=== PATIENT | male | born 1940 | race Caucasian/White ===

== ENCOUNTER 2018-06-07 17:28 | Inpatient (IN) ==
[2018-06-07] MEDS ORDERED: 0.9 % Sodium Chloride 1,000 ML IVC ONE ×3 (18:12→19:16)
[2018-06-07] MEDS ORDERED: predniSONE 20 MG TABLET PO ONE (18:12)
--- NOTE | 2018-06-07 18:16 | Emergency Department Note ---
Disposition Clinical Impression: Lumbar back pain, Acute renal failure, Sciatica Disposition: Still a Patient Condition: Good Referrals: Oswald Gonzales DO [Primary Care Provider] - Forms: ED Satisfaction Letter General Adult HPI - General Chief complaint: ED Back Pain/Injury Stated complaint: back pain/bilat lower extremity edema Time Seen by Provider: 06/07/18 17:46 Source: patient Mode of arrival: private vehicle Limitations: no limitations Nursing Notes Reviewed: Yes Vital Signs Reviewed: Yes - History of Present Illness HPI Narrative: Patient is a 78-year-old male with a past medical history of chronic back pain for which she sees Dr. Sosa. Patient states he is currently scheduled to have an ablation of a nerve in his back this coming Friday. 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 When he woke up on Friday he reported back pain on the left side with radiation down his left leg. Today he reports difficulty walking due to pain. He has tried a number of percocet which he thinks were "325" Q6 hours today without significant relief. He reports a hx of HTN, but triage vitals included hypotension. Pt reports his pain as sharp in nature, with radiation down his left, made worse with certain movements, and made better by other motions. Pain Scale: 7 - Related Data Allergies Allergy/AdvReac Type Severity Reaction Status Date / Time Penicillins [PCN] Allergy Hives Verified 09/14/15 12:32 Review of Systems: All systems ED: reviewed and negative except as stated. Constitutional: Denies: fever, chills ENT ED: Denies: ear pain, throat pain Cardiovascular: Denies: chest pain, palpitations Respiratory: Denies: cough, dyspnea Gastrointestinal: Denies: abdominal pain, vomiting, diarrhea, constipation Reports: nausea, intermittently, from pain Genitourinary: Denies: urgency, dysuria, frequency Musculoskeletal: Denies: neck pain Reports: back pain, chronic in nature with acute component for the last two days Integumentary: Denies: rash, abrasion Neurological: Denies: headache, weakness, Reports: numbness, paresthesias in [place] Psychiatric: Denies: anxiety, depression Endocrine: Denies: fatigue, heat or cold intolerance Hematological/Lymphatic: Denies: easy bleeding, easy bruising Allergic/Immunologic: Denies: facial swelling, urticaria Past Medical History - Past Medical History Medical history: Reports: GERD, hypertension Psychiatric history: Reports: no psych history - Social History Smoking Status: Never smoker Smokeless Tobacco Status: No Alcohol use: Reports: occasionally Drug use: Reports: none Physical Exam General: A&O x 3. No acute distress. Well developed, well nourished. Head: atraumatic, normocephalic. ENT: No conjunctival injection, no scleral icterus. PERRLA. EOMI. Oropharynx non- erythematous. mucous membranes tacky. Neuro: No focal deficits, no speech deficit, no facial droop, mentating well. BUE str 5/5, RLE Str 5/5, LLE Str 4/5. Pulm: Lungs CTAB A/P. No wheezes, rales, ronchi. Cardio: RRR no m/r/g. Chest not tender to palpation. Abd: Soft, non-distended. Normoactive bowel sounds. Non-tender to palpation. No guarding. Non rigid. Extremities: Radial pulses 2+ [place], dorsalis pedis/posterior tibialis 2+ right, 1+ left. [place] LE edema 2+, with cold feet and cap refill of ~7s, which pt reports as "better than normal" and chronic in nature. Skin: warm, dry, intact. No rashes. Psych: Appropriate mood and affect. Answers questions appropriately. Cooperative with exam. - General Limitations: no limitations General appearance: alert Course Course Narrative: Pt reports for inability to control pain at home, but was found to be tachycardic with automatic and manual auscultation of both upper extremities. Will obtain CBC, BMP, troponin, lactic acid, EKG. Will administer 40mg prednisone and apply lidoderm patch. Disposition pending workup. - Reevaluation(s) Reevaluation #1: Pt had lactic 3.1 with WBC >17. On re-examination, he does not have any abdominal tenderness. He does report a headache and some issues with urge incontinence, but does not report any dysuria and there was no CVA tenderness. He also reports a hx of cystitis in march of this year, but it was successfully treated with oral antibiotics. Time: 18:58 Reevaluation #2: Pts BP improved to 90/60 with 1L NaCl, but Cr came back 4.44. A second liter was ordered. Time: 19:07 Vital Signs Temperature 97.7 F 06/07/18 17:31 Pulse Rate 104 06/07/18 17:31 Respiratory Rate 16 06/07/18 17:31 Blood Pressure 77/59 06/07/18 17:31 O2 Sat by Pulse Oximetry 94 06/07/18 17:31 Temperature 97.7 F 06/07/18 17:31 Pulse Rate 90 06/07/18 18:50 Respiratory Rate 16 06/07/18 18:50 Blood Pressure 93/62 06/07/18 18:50 O2 Sat by Pulse Oximetry 100 06/07/18 18:50 Oxygen Delivery Oxygen Delivery Room Air Medical Decision Making - MDM Narrative Medical decision making narrative: Pt will be signed out to night team - Dr. Erickson. Please see his note for full disposition and results of the workup. At time of sign-out, UA and CXR were pending. - Lab Data Result diagrams: 06/07/18 18:20 06/07/18 18:20 Lab Results 06/07/18 06/07/18 06/07/18 Range/Units 18:20 18:20 18:20 WBC 17.4 H (4.3-11.1) K/mcL RBC 4.69 (4.19-5.50) M/mcL Hgb 14.7 (12.9-16.9) g/dL Hct 43.7 (37.5-50.1) % MCV 93.2 (83.0-100.0) fL MCH 31.3 (28.0-33.3) pg MCHC 33.6 (31.6-35.5) g/dL RDW 13.9 (11.5-14.5) % Plt Count 158 (140-400) K/mcL MPV 10.0 (9.4-12.4) fL Immature Gran % 1.1 (0-4) % Seg Neutrophils % 84.4 % Lymphocytes % 9.5 % Monocytes % 4.0 % Eosinophils % 0.7 % Basophils % 0.3 % Neutrophils # 14.7 H (1.6-8.9) K/mcL Lymphocytes # 1.7 (0.6-4.6) K/mcL Monocytes # 0.7 (0.0-1.3) K/mcL Eosinophils # 0.1 (0.0-0.6) K/mcL Basophils # 0.1 (0.0-0.2) K/mcL Sodium 137 (136-145) mEq/L Potassium 3.9 (3.5-5.1) mEq/L Chloride 99 (98-107) mEq/L Carbon Dioxide 20 L (23-29) mEq/L BUN 42 H (8-23) mg/dL Creatinine 4.44 H (0.70-1.30) mg/dL Est GFR ( Amer) 16 L (> 60) Est GFR (Non-Af Amer) 13 L (> 60) BUN/Creatinine Ratio 9 (6-26) Glucose 173 H (70-105) mg/dL Calculated Osmolality 299 (280-300) Lactic Acid 3.1 H (0.5-2.2) mmol/L Calcium 9.0 (8.6-10.3) mg/dL Troponin I < 0.03 (< 0.04) ng/mL - EKG Data EKG #1 EKG attestation: Yes I reviewed and interpreted this EKG. EKG results narrative: HR 98, rhythm sinus, axis borderline right at 85. ID 154, QRS 158 and prolonged, QTc 509 and prolonged. RBBB. EKG is different from comparison study from 01/31/10. Attestation Statement - Attestation Attestation: I, Chong Calvert, examined this patient and my medical decision-making was reviewed with the [employer]/PA/Advanced Practice Nurse/Resident Physician. I agree with the documented findings, disposition and treatment plan as described except to the extent set forth below. 78-year-old male presents emergency Department with concerns of back pain. Patient states he was sitting in a coronal day with 2 days ago and has had significant pain since that time. Patient states the pain is in his left low back and radiates down his left lower extremity. No trauma or cumulative trauma, no recent unexplained weight loss, immunosuppression, unexplained fever, IVDU, prolonged steroids, focal neurologic deficits with progress for disabling symptoms or perineal paresthesias or incontinence, not present more than 6 weeks, and no history of AAA. He does have a history of similar symptoms in the past secondary to sciatica. He received steroid injections at that time which improved his symptoms. On evaluation the patient was hypotensive, he was then also mildly tachycardic. Patient had acute renal failure on laboratory evaluation. Patient care signed out to Dr. Erickson pending CT exam of the abdomen and likely admission to the hospital.
[2018-06-07 18:29] LABS: Basophils # 0.1 K/mcL (0.0-0.2); Basophils % 0.3 %; Eosinophils # 0.1 K/mcL (0.0-0.6); Eosinophils % 0.7 %; Hematocrit 43.7 % (37.5-50.1); Hemoglobin 14.7 g/dL (12.9-16.9); Immature Granulocytes % 1.1 % (0-4); Lymphocytes # 1.7 K/mcL (0.6-4.6); Lymphocytes % 9.5 %; Mean Corpuscular HGB Conc 33.6 g/dL (31.6-35.5); Mean Corpuscular Hemoglobin 31.3 pg (28.0-33.3); Mean Corpuscular Volume 93.2 fL (83.0-100.0); Monocytes # 0.7 K/mcL (0.0-1.3); Neutrophils # 14.7 K/mcL (1.6-8.9); Platelet Count 158 K/mcL (140-400); Red Blood Count 4.69 M/mcL (4.19-5.50); Red Cell Distribution Width 13.9 % (11.5-14.5); Segmented Neutrophils % 84.4 %
[2018-06-07 18:53] LABS: BUN/Creatinine Ratio 9 (6-26); Blood Urea Nitrogen 42 mg/dL (8-23); Carbon Dioxide 20 mEq/L (23-29); Chloride 99 mEq/L (98-107); Glucose 173 mg/dL (70-105); Osmolality,Calculated 299 (280-300); Potassium 3.9 mEq/L (3.5-5.1); Sodium 137 mEq/L (136-145); eGFR For Non-African Americans 13 (> 60)
[2018-06-07 18:54] LABS: Troponin I < 0.03 ng/mL (< 0.04)
--- NOTE | 2018-06-07 19:16 | Emergency Department Note ---
Disposition Clinical Impression: Lumbar back pain, Acute urinary retention Acute renal failure Qualifiers: Acute renal failure type: unspecified Qualified Code(s): N17.9 - Acute kidney failure, unspecified Sciatica Qualifiers: Laterality: unspecified laterality Qualified Code(s): M54.30 - Sciatica, unspecified side Disposition: Still a Patient Condition: Good Referrals: Oswald Gonzales DO [Primary Care Provider] - Forms: ED Satisfaction Letter Time of Disposition: 21:06 General Adult HPI - General Chief complaint: ED Back Pain/Injury Stated complaint: back pain Time Seen by Provider: 06/07/18 17:46 Source: patient Mode of arrival: private vehicle Limitations: no limitations - History of Present Illness Pain Scale: 7 - Related Data Home Medications Medication Instructions Recorded Confirmed Acetaminophen [Tylenol] 500 mg PO DAILY PRN 06/07/18 06/07/18 Aspirin [Ecotrin] 325 mg PO DAILY 06/07/18 06/07/18 Gabapentin [Neurontin] 600 mg PO BID 06/07/18 06/07/18 Latanoprost [Xalatan] 1 drop OP HS 06/07/18 06/07/18 Lisinopril/Hydrochlorothiazide 2 each PO DAILY 06/07/18 06/07/18 [Zestoretic 10-12.5 mg Tablet] Naproxen [Naprosyn] 500 mg PO DAILY PRN 06/07/18 06/07/18 Omeprazole [PriLOSEC] 20 mg PO BID 06/07/18 06/07/18 Allergies Allergy/AdvReac Type Severity Reaction Status Date / Time Penicillins [PCN] Allergy Hives Verified 09/14/15 12:32 Past Medical History - Past Medical History Medical history: Reports: GERD, hypertension Psychiatric history: Reports: no psych history - Social History Smoking Status: Never smoker Smokeless Tobacco Status: No Alcohol use: Reports: occasionally Drug use: Reports: none Physical Exam - General Limitations: no limitations General appearance: alert Course Vital Signs Temperature 97.7 F 06/07/18 17:31 Pulse Rate 104 06/07/18 17:31 Respiratory Rate 16 06/07/18 17:31 Blood Pressure 77/59 06/07/18 17:31 O2 Sat by Pulse Oximetry 94 06/07/18 17:31 Temperature 97.7 F 06/07/18 17:31 Pulse Rate 93 06/07/18 19:25 Respiratory Rate 18 06/07/18 19:25 Blood Pressure 105/75 06/07/18 19:25 O2 Sat by Pulse Oximetry 100 06/07/18 19:25 Oxygen Delivery Oxygen Delivery Room Air Medical Decision Making - Lab Data Result diagrams: 06/07/18 18:20 06/07/18 18:20 Lab Results 06/07/18 06/07/18 06/07/18 Range/Units 18:20 18:20 18:20 WBC 17.4 H (4.3-11.1) K/mcL RBC 4.69 (4.19-5.50) M/mcL Hgb 14.7 (12.9-16.9) g/dL Hct 43.7 (37.5-50.1) % MCV 93.2 (83.0-100.0) fL MCH 31.3 (28.0-33.3) pg MCHC 33.6 (31.6-35.5) g/dL RDW 13.9 (11.5-14.5) % Plt Count 158 (140-400) K/mcL MPV 10.0 (9.4-12.4) fL Immature Gran % 1.1 (0-4) % Seg Neutrophils % 84.4 % Lymphocytes % 9.5 % Monocytes % 4.0 % Eosinophils % 0.7 % Basophils % 0.3 % Neutrophils # 14.7 H (1.6-8.9) K/mcL Lymphocytes # 1.7 (0.6-4.6) K/mcL Monocytes # 0.7 (0.0-1.3) K/mcL Eosinophils # 0.1 (0.0-0.6) K/mcL Basophils # 0.1 (0.0-0.2) K/mcL Sodium 137 (136-145) mEq/L Potassium 3.9 (3.5-5.1) mEq/L Chloride 99 (98-107) mEq/L Carbon Dioxide 20 L (23-29) mEq/L BUN 42 H (8-23) mg/dL Creatinine 4.44 H (0.70-1.30) mg/dL Est GFR ( Amer) 16 L (> 60) Est GFR (Non-Af Amer) 13 L (> 60) BUN/Creatinine Ratio 9 (6-26) Glucose 173 H (70-105) mg/dL Calculated Osmolality 299 (280-300) Lactic Acid 3.1 H (0.5-2.2) mmol/L Calcium 9.0 (8.6-10.3) mg/dL Troponin I < 0.03 (< 0.04) ng/mL Urine Color (Yellow) Urine Clarity (Clear) Urine pH (5.0-8.0) pH Units Ur Specific [place] (1.010-1.025) Urine Protein (Neg-Trace) mg/dL Urine Glucose (UA) (Normal) mg/dL Urine Ketones (Negative) mg/dL Urine Blood (Negative) Urine Nitrite (Negative) Urine Bilirubin (Negative) Urine Urobilinogen (Normal) mg/dL Ur Leukocyte Esterase (Negative) Urine Microscopic RBC (0-3) per hpf Urine Microscopic WBC (0-3) per hpf Ur Squamous Epith Cells (None-Few) per lpf Urine Bacteria (None-Few) per hpf Hyaline Casts (None-Few) per lpf Ur Culture Indicated? (NO) 06/07/18 Range/Units 20:08 WBC (4.3-11.1) K/mcL RBC (4.19-5.50) M/mcL Hgb (12.9-16.9) g/dL Hct (37.5-50.1) % MCV (83.0-100.0) fL MCH (28.0-33.3) pg MCHC (31.6-35.5) g/dL RDW (11.5-14.5) % Plt Count (140-400) K/mcL MPV (9.4-12.4) fL Immature Gran % (0-4) % Seg Neutrophils % % Lymphocytes % % Monocytes % % Eosinophils % % Basophils % % Neutrophils # (1.6-8.9) K/mcL Lymphocytes # (0.6-4.6) K/mcL Monocytes # (0.0-1.3) K/mcL Eosinophils # (0.0-0.6) K/mcL Basophils # (0.0-0.2) K/mcL Sodium (136-145) mEq/L Potassium (3.5-5.1) mEq/L Chloride (98-107) mEq/L Carbon Dioxide (23-29) mEq/L BUN (8-23) mg/dL Creatinine (0.70-1.30) mg/dL Est GFR ( Amer) (> 60) Est GFR (Non-Af Amer) (> 60) BUN/Creatinine Ratio (6-26) Glucose (70-105) mg/dL Calculated Osmolality (280-300) Lactic Acid (0.5-2.2) mmol/L Calcium (8.6-10.3) mg/dL Troponin I (< 0.04) ng/mL Urine Color Dark Yellow (Yellow) Urine Clarity Cloudy A (Clear) Urine pH 5.0 (5.0-8.0) pH Units Ur Specific [place] 1.026 H (1.010-1.025) Urine Protein 30 H (Neg-Trace) mg/dL Urine Glucose (UA) Normal (Normal) mg/dL Urine Ketones Trace H (Negative) mg/dL Urine Blood Negative (Negative) Urine Nitrite Negative (Negative) Urine Bilirubin Small H (Negative) Urine Urobilinogen Normal (Normal) mg/dL Ur Leukocyte Esterase Small H (Negative) Urine Microscopic RBC 15-30 H (0-3) per hpf Urine Microscopic WBC 15-30 H (0-3) per hpf Ur Squamous Epith Cells Many H (None-Few) per lpf Urine Bacteria None Seen (None-Few) per hpf Hyaline Casts Many H (None-Few) per lpf Ur Culture Indicated? NO. A (NO) Attestation Statement - Attestation Attestation: Care of patient assumed from at 19:[address] abdomen and pelvis. The patient presented with atraumatic low back pain. He was hypotensive upon arrival. Labs indicate an acute kidney injury. Urinalysis and CT pending. Patient appears in no acute distress on exam 19:56: Unable to void spontaneously. He states he last urinated earlier this morning. I did perform a limited suprapubic transabdominal ultrasound which shows acutely retained urine. Gutierres catheter to be placed. 20:06: The patient states his legs feel weak. He has some numbness to his bilateral legs. Given his acute urinary retention I am ordering an MRI of his lumbar spine 21:06: Care to be endorsed to Dr. Mac at 10 PM pending MRI L-spine
[2018-06-07 20:22] LABS: Bilirubin,Urine Small (Negative); Blood,Urine Negative (Negative); Clarity,Urine Cloudy (Clear); Color,Urine Dark Yellow (Yellow); Glucose,Urine (UA) Normal (Normal); Ketones,Urine Trace mg/dL (Negative); Leukocyte Esterase,Urine Small (Negative); Nitrite,Urine Negative (Negative); Protein,Urine 30 mg/dL (Neg-Trace); Specific Gravity,Urine 1.026 (1.010-1.025); Urobilinogen,Urine Normal (Normal)
[2018-06-07 20:25] LABS: Bacteria,Urine None Seen per hpf (None-Few); RBC,Urine 15-30 per hpf (0-3); Squamous Epithelial Cell,Urine Many per lpf (None-Few); WBC,Urine 15-30 per hpf (0-3)
[2018-06-07 20:40] LABS: Hyaline Casts,Urine Many per lpf (None-Few)
--- NOTE | 2018-06-07 21:58 | Emergency Department Note ---
Disposition Clinical Impression: Lumbar back pain, Acute urinary retention, Superficial thrombophlebitis of left leg Acute renal failure Qualifiers: Acute renal failure type: unspecified Qualified Code(s): N17.9 - Acute kidney failure, unspecified Sciatica Qualifiers: Laterality: unspecified laterality Qualified Code(s): M54.30 - Sciatica, unspecified side Left leg DVT Qualifiers: Affected thrombotic vein of extremity: unspecified vein of extremity Chronicity: acute Qualified Code(s): I82.402 - Acute embolism and thrombosis of unspecified deep veins of left lower extremity Disposition: Admitted As Inpatient Condition: Good Referrals: Oswald Gonzales DO [Primary Care Provider] - Forms: ED Satisfaction Letter General Adult HPI - General Chief complaint: ED Back Pain/Injury Stated complaint: back pain Time Seen by Provider: 06/07/18 17:46 Source: patient Mode of arrival: private vehicle Limitations: no limitations - History of Present Illness Pain Scale: 7 - Related Data Home Medications Medication Instructions Recorded Confirmed Acetaminophen [Tylenol] 500 mg PO DAILY PRN 06/07/18 06/07/18 Aspirin [Ecotrin] 325 mg PO DAILY 06/07/18 06/07/18 Gabapentin [Neurontin] 600 mg PO BID 06/07/18 06/07/18 Latanoprost [Xalatan] 1 drop OP HS 06/07/18 06/07/18 Lisinopril/Hydrochlorothiazide 2 each PO DAILY 06/07/18 06/07/18 [Zestoretic 10-12.5 mg Tablet] Naproxen [Naprosyn] 500 mg PO DAILY PRN 06/07/18 06/07/18 Omeprazole [PriLOSEC] 20 mg PO BID 06/07/18 06/07/18 Allergies Allergy/AdvReac Type Severity Reaction Status Date / Time Penicillins [PCN] Allergy Hives Verified 09/14/15 12:32 Past Medical History - Past Medical History Medical history: Reports: GERD, hypertension Psychiatric history: Reports: no psych history - Social History Smoking Status: Never smoker Smokeless Tobacco Status: No Alcohol use: Reports: occasionally Drug use: Reports: none Physical Exam - General Limitations: no limitations General appearance: alert Course Course Narrative: This patient was signed out to me at shift change. Please refer to previous provider notes for complete details of the history and physical exam. Patient presented with complaint of some lower back pain. He was hypotensive on arrival. Workup revealed acute kidney injury. Patient found to have urinary retention. Patient also noted to have urinary retention and a Gutierres catheter was placed. His blood pressure improved with fluids. At signout to me patient is awaiting MRI of the lumbar spine service. If his [place] filter is compatible to have an MRI. - Consultations Consultation #1: Patient discussed with the hospitalist, Dr. Tolentino, and he will come and evaluate patient in the emergency department. After evaluating patient in the emergency department Dr. Tolentino requested a CT aortogram however patient's GFR is 13 and creatinine 4.44. He cannot received the contrast. Cardiopulmonary ultrasound was consulted to perform a DVT study. Time: 00:00 Consultation #2: Ultrasound of the left leg was positive for DVT and SVT. Tech reported clot as high as she could not see into the groin. Results relayed to Dr. Tolentino and patient accepted for admission. We will go ahead and start patient on heparin. Patient has no contraindication. Time: 04:00 Vital Signs Temperature 97.7 F 06/07/18 17:31 Pulse Rate 104 06/07/18 17:31 Respiratory Rate 16 06/07/18 17:31 Blood Pressure 77/59 06/07/18 17:31 O2 Sat by Pulse Oximetry 94 06/07/18 17:31 Temperature 97.7 F 06/07/18 17:31 Pulse Rate 85 06/08/18 03:10 Respiratory Rate 19 06/08/18 03:10 Blood Pressure 108/72 06/08/18 03:10 O2 Sat by Pulse Oximetry 94 06/08/18 03:10 Oxygen Delivery Oxygen Delivery Room Air Medical Decision Making - Lab Data Result diagrams: 06/07/18 18:20 06/07/18 18:20 Lab Results 06/07/18 06/07/18 06/07/18 Range/Units 18:20 18:20 18:20 WBC 17.4 H (4.3-11.1) K/mcL RBC 4.69 (4.19-5.50) M/mcL Hgb 14.7 (12.9-16.9) g/dL Hct 43.7 (37.5-50.1) % MCV 93.2 (83.0-100.0) fL MCH 31.3 (28.0-33.3) pg MCHC 33.6 (31.6-35.5) g/dL RDW 13.9 (11.5-14.5) % Plt Count 158 (140-400) K/mcL MPV 10.0 (9.4-12.4) fL Immature Gran % 1.1 (0-4) % Seg Neutrophils % 84.4 % Lymphocytes % 9.5 % Monocytes % 4.0 % Eosinophils % 0.7 % Basophils % 0.3 % Neutrophils # 14.7 H (1.6-8.9) K/mcL Lymphocytes # 1.7 (0.6-4.6) K/mcL Monocytes # 0.7 (0.0-1.3) K/mcL Eosinophils # 0.1 (0.0-0.6) K/mcL Basophils # 0.1 (0.0-0.2) K/mcL Sodium 137 (136-145) mEq/L Potassium 3.9 (3.5-5.1) mEq/L Chloride 99 (98-107) mEq/L Carbon Dioxide 20 L (23-29) mEq/L BUN 42 H (8-23) mg/dL Creatinine 4.44 H (0.70-1.30) mg/dL Est GFR ( Amer) 16 L (> 60) Est GFR (Non-Af Amer) 13 L (> 60) BUN/Creatinine Ratio 9 (6-26) Glucose 173 H (70-105) mg/dL Calculated Osmolality 299 (280-300) Lactic Acid 3.1 H (0.5-2.2) mmol/L Calcium 9.0 (8.6-10.3) mg/dL Troponin I < 0.03 (< 0.04) ng/mL Urine Color (Yellow) Urine Clarity (Clear) Urine pH (5.0-8.0) pH Units Ur Specific [place] (1.010-1.025) Urine Protein (Neg-Trace) mg/dL Urine Glucose (UA) (Normal) mg/dL Urine Ketones (Negative) mg/dL Urine Blood (Negative) Urine Nitrite (Negative) Urine Bilirubin (Negative) Urine Urobilinogen (Normal) mg/dL Ur Leukocyte Esterase (Negative) Urine Microscopic RBC (0-3) per hpf Urine Microscopic WBC (0-3) per hpf Ur Squamous Epith Cells (None-Few) per lpf Urine Bacteria (None-Few) per hpf Hyaline Casts (None-Few) per lpf Ur Culture Indicated? (NO) 06/07/18 06/07/18 Range/Units 20:08 22:04 WBC (4.3-11.1) K/mcL RBC (4.19-5.50) M/mcL Hgb (12.9-16.9) g/dL Hct (37.5-50.1) % MCV (83.0-100.0) fL MCH (28.0-33.3) pg MCHC (31.6-35.5) g/dL RDW (11.5-14.5) % Plt Count (140-400) K/mcL MPV (9.4-12.4) fL Immature Gran % (0-4) % Seg Neutrophils % % Lymphocytes % % Monocytes % % Eosinophils % % Basophils % % Neutrophils # (1.6-8.9) K/mcL Lymphocytes # (0.6-4.6) K/mcL Monocytes # (0.0-1.3) K/mcL Eosinophils # (0.0-0.6) K/mcL Basophils # (0.0-0.2) K/mcL Sodium (136-145) mEq/L Potassium (3.5-5.1) mEq/L Chloride (98-107) mEq/L Carbon Dioxide (23-29) mEq/L BUN (8-23) mg/dL Creatinine (0.70-1.30) mg/dL Est GFR ( Amer) (> 60) Est GFR (Non-Af Amer) (> 60) BUN/Creatinine Ratio (6-26) Glucose (70-105) mg/dL Calculated Osmolality (280-300) Lactic Acid 2.6 H (0.5-2.2) mmol/L Calcium (8.6-10.3) mg/dL Troponin I (< 0.04) ng/mL Urine Color Dark Yellow (Yellow) Urine Clarity Cloudy A (Clear) Urine pH 5.0 (5.0-8.0) pH Units Ur Specific [place] 1.026 H (1.010-1.025) Urine Protein 30 H (Neg-Trace) mg/dL Urine Glucose (UA) Normal (Normal) mg/dL Urine Ketones Trace H (Negative) mg/dL Urine Blood Negative (Negative) Urine Nitrite Negative (Negative) Urine Bilirubin Small H (Negative) Urine Urobilinogen Normal (Normal) mg/dL Ur Leukocyte Esterase Small H (Negative) Urine Microscopic RBC 15-30 H (0-3) per hpf Urine Microscopic WBC 15-30 H (0-3) per hpf Ur Squamous Epith Cells Many H (None-Few) per lpf Urine Bacteria None Seen (None-Few) per hpf Hyaline Casts Many H (None-Few) per lpf Ur Culture Indicated? NO. A (NO) - Radiology Data Radiology results reviewed: Yes I reviewed the patient's radiology results. Chest X-Ray 06/07/18 18:46 IMPRESSION: No acute cardiopulmonary disease. D/ / Johny Yao / Johny Yao Interpreting Provider: Johny Yao Abdomen/Pelvis CT 06/07/18 19:10 IMPRESSION: 1. Prominent mesenteric lymph nodes with haziness of the mesenteric fat, correlate for signs or symptoms of a mesenteric adenitis. 2. Nonobstructive renal calculi, decompressed bladder with a Gutierres catheter in situ. 3. Diverticulosis without CT evidence of acute diverticulitis. D/ / Johny Yao / Johny Yao Interpreting Provider: Johny Yao Venous Doppler ultrasound of the left lower leg was positive for DVT and SVT. Critical Care Time Critical Care Time: Yes Total Critical Care Time: 60 Attestation: Critical care performed: Time is exclusive of separately billable procedures. Time includes: direct patient care, patient reassessment, coordination of patient care, interpretation of data (laboratory data, radiology data, and respiratory data), review of patient's medical records, medical consultation and documentation of patient care. Procedures included in critical care time: Procedures excluded from critical care time:
[2018-06-08] MEDS ORDERED: *HR* Heparin 5,000 UNIT/ML VIAL IVP PRN ×2 (04:13)
[2018-06-08] MEDS ORDERED: *HR* Heparin 5,000 UNIT/ML VIAL IVP ONE (04:13)
[2018-06-08 05:04] LABS: INR 1.1; Prothrombin Time 12.7 Seconds (9.4-12.1)
[2018-06-08 05:18] LABS: Heparin anti-factor XA UFH 0.02 IU/mL (0.30-0.70)
[2018-06-08] MEDS: Heparin 25,000 UNIT/250 ML D5W 25,000 UNIT/250 ML IV.SOLN IVC SCH (05:46)
--- NOTE | 2018-06-08 10:01 | Internal Med History&Physical ---
Date of Encounter: 06/08/18 Time of Encounter: 09:00 Internal Medicine - H&P: HPI Chief complaint: Low back pain Admitted From: Home Plans for Post Hospital Care: Home History of present illness: Patient is a 78-year-old male with past medical history significant for spinal stenosis with lumbar fusion, hypertension and prior pulmonary embolism and DVT on Coumadin and IV filter who presents due to worsening of his lower back pain. Patient reports of chronic back pain that has gotten worse and was scheduled to see his the pubic spine specialists on 06/09/18 but discomfort became worse and decided to come to the ER for evaluation. In the ER patient was found to have a left lower extremity swelling and lower extremity Doppler was done which was positive for DVT and SVT. Abdominal/pelvis CT shows posterior effusion present at L4-L5 with moderate to severe multilevel degenerative changes that are present. Patient also found to have elevated creatinine of 4.44. Patient will be admitted to the medical surgical floor for management of acute left lower extremity DVT/SVT and acute renal failure. Past Med Surg Social Fam HX - Past Medical History Medical history: GERD, hypertension Psychiatric history: no psych history - Past Surgical History Surgical History: non-contributory - Social History Smoking Status: Never smoker Smokeless Tobacco Status: No Alcohol use: occasionally Drug use: none - Additional Family History Additional family history: Reviewed and noncontributory Internal Medicine - H&P: Meds Acetaminophen [Tylenol] 500 mg PO DAILY PRN 06/07/18 [History] Aspirin [Ecotrin] 325 mg PO DAILY 06/07/18 [History] Gabapentin [Neurontin] 600 mg PO BID 06/07/18 [History] Latanoprost [Xalatan] 1 drop OP HS 06/07/18 [History] Lisinopril/Hydrochlorothiazide [Zestoretic 10-12.5 mg Tablet] 2 each PO DAILY 06/07/18 [History] Naproxen [Naprosyn] 500 mg PO DAILY PRN 06/07/18 [History] Omeprazole [PriLOSEC] 20 mg PO BID 06/07/18 [History] Allergy/AdvReac Type Severity Reaction Status Date / Time Penicillins [PCN] Allergy Hives Verified 09/14/15 12:32 All Systems PM: A 10-system review of systems was performed and is negative for pertinent findings except as documented above in the HPI. - Constitutional Vitals: Temp Pulse Resp BP Pulse Ox 97.6 F 70 16 128/80 98 06/08/18 08:43 06/08/18 08:43 06/08/18 08:43 06/08/18 08:43 06/08/18 08:43 Exam: General appearance: Present: A&O X 3, no acute distress - Head Head exam: Present: normocephalic - Eye Eye exam: Present: normal appearance - ENT ENT exam: Present: mucous membranes moist - Respiratory Respiratory exam: Present: CTAB. Absent: accessory muscle use, rales, rhonchi, wheezes - Cardiovascular Cardiovascular exam: Present: RRR, +S1, +S2. Absent: diastolic murmur, gallop, rubs, systolic murmur - GI/Abdominal GI/Abdominal exam: Present: normal bowel sounds, soft, no peritoneal signs. Absent: distended, tenderness - Extremities Exam Extremities exam: Left lower extremity swelling with warmth and erythema from foot to the knee - Neurological Exam Neurological exam: Present: alert, oriented X3, no focal deficits. Absent: altered - Psychiatric Psychiatric exam: -normal mood Skin exam: -normal color Internal Med - H&P Results - Labs CBC & Chem 7: 06/07/18 18:20 06/07/18 18:20 Labs: Short CBC 06/07/18 Range/Units 18:20 WBC 17.4 H (4.3-11.1) K/mcL Hgb 14.7 (12.9-16.9) g/dL Hct 43.7 (37.5-50.1) % Plt Count 158 (140-400) K/mcL Neutrophils # 14.7 H (1.6-8.9) K/mcL BMP 06/07/18 18:20 Sodium 137 Potassium 3.9 Chloride 99 Carbon Dioxide 20 L BUN 42 H Creatinine 4.44 H Glucose 173 H Calcium 9.0 Cardiac Enzymes 06/07/18 Range/Units 18:20 Troponin I < 0.03 (< 0.04) ng/mL Urine 06/07/18 Range/Units 20:08 Urine Color Dark Yellow (Yellow) Urine Clarity Cloudy A (Clear) Urine pH 5.0 (5.0-8.0) pH Units Ur Specific [place] 1.026 H (1.010-1.025) Urine Protein 30 H (Neg-Trace) mg/dL Urine Glucose (UA) Normal (Normal) mg/dL - Impressions ITS Impressions Chest X-Ray 06/07/18 18:46 IMPRESSION: No acute cardiopulmonary disease. D/ / Johny Yao / Johny Yao Interpreting Provider: Johny Yao Abdomen/Pelvis CT 06/07/18 19:10 IMPRESSION: 1. Prominent mesenteric lymph nodes with haziness of the mesenteric fat, correlate for signs or symptoms of a mesenteric adenitis. 2. Nonobstructive renal calculi, decompressed bladder with a Gutierres catheter in situ. 3. Diverticulosis without CT evidence of acute diverticulitis. D/ / Johny Yao / Johny Yao Interpreting Provider: Johny Yao - Assessment and Plan (1) Left leg DVT Current Visit: Yes Status: Acute Assessment and plan: Patient not sure if he remembers having leg swelling but on admission to the ER was detected on exam and lower extremity Dopplers detected DVT and SVT at the left lower extremity. Patient is a very poor historian but reports of having a PE and then being placed on Coumadin and receiving a IVC filter but later getting another lower extremity DVT. Will continue heparin drip started in the ER Will also consult vascular surgery and appreciate recommendations Qualifiers: Affected thrombotic vein of extremity: unspecified vein of extremity Chronicity: unspecified Qualified Code(s): I82.402 - Acute embolism and thrombosis of unspecified deep veins of left lower extremity (2) Acute renal failure Current Visit: Yes Status: Acute Assessment and plan: Patient found to have a creatinine of 4.44 on admission with a GFR of 13;prior creatinine in 2018 was 1.46 Nephrology consulted and appreciate recommendations Qualifiers: Qualified Code(s): N17.9 - Acute kidney failure, unspecified (3) Acute urinary retention Current Visit: Yes Status: Acute Assessment and plan: Gutierres catheter was placed in the ER due to urinary retention Will do a voiding trial (4) HTN (hypertension), benign Current Visit: Yes Status: Acute Assessment and plan: Continue home medications (5) Lumbar back pain Current Visit: Yes Status: Acute Assessment and plan: Patient with past medical history significant for spinal stenosis with lumbar fusion and reports of chronic back pain that has gotten worse and was scheduled to see his the pubic spine specialists on 06/09/18 In the ER abdominal/pelvis CT shows posterior effusion present at L4-L5 with moderate to severe multilevel degenerative changes that are present. (6) DVT prophylaxis Current Visit: Yes Status: Acute Assessment and plan: Patient on heparin drip as above - Time Spent With Patient Total time spent is greater than 50% in coordination of care (as documented) at patient's floor/unit and/or counseling patient:
[2018-06-08] MEDS ORDERED: Naloxone 0.4 MG/ML INJ IVP PRN (10:35)
--- NOTE | 2018-06-08 12:28 | Nephrology Consult Note ---
Date of Encounter: 06/08/18 Time of Encounter: 12:28 Assessment and Plan (1) Acute renal failure Current Visit: Yes Status: Acute DANN on CKD stage III, with renal risk factors: intravascular volume depletion, NSAIDs, lópez/thiazide diuretic use, obesity, hypertension. I recommend holding the lisinopril hydrochlorothiazide, and the NSAIDs. Continue IVF as tolerated by peripheral edema. He will need an DANN and CKD work up. I will order serologies and renal imaging if not already ordered. He was not uremic on exam, so I do not recommend starting MANAGER COST, but if he were to worsen d/t the IVF that have been started, then he may need MANAGER COST. In the meantime, I recommend following a renal protective strategy: strict I/Os, daily weights, avoidance of NSAIDs and other nephrotoxins, renal dosing. Thank you for consulting the [facility] group. Will continue to follow with you. Qualifiers: Acute renal failure type: unspecified Qualified Code(s): N17.9 - Acute kidney failure, unspecified (2) NSAID long-term use Current Visit: Yes Status: Acute Stop NSAIDs (3) Acute urinary retention Current Visit: Yes Status: Acute Gutierres was placed. The floor RN later paged me and I recommended continuing IVF. (4) Left leg DVT Current Visit: Yes Status: Acute As per primary Qualifiers: Affected thrombotic vein of extremity: unspecified vein of extremity Chronicity: unspecified Qualified Code(s): I82.402 - Acute embolism and thrombosis of unspecified deep veins of left lower extremity (5) HTN (hypertension), benign Current Visit: Yes Status: Acute Hold LÓPEZ and thiazide. History of Present Illness - Reason for Consult Consult date: 06/08/18 Acute Kidney Injury Requesting physician: Ludin Yo - Chief Complaint DANN - History of Present Illness Jaspreet Faria is a very pleasant 78 y/o gentleman who present with a pmh of chronic back pain with spinal stenosis on NSAIDs, HTN, HTN, hx of DVT/PE s/p IVC filter 2013 who present with worsening LE edema. Nephrology was c onsulted as he was found to have an DANN. His and nephew were present as the pt was interviewed/examined in his 2A room. He affirmed that since Friday, he has LEs have become progressively more edema. He affirmed fatigue, some shortness of breath and dark urination without buring or F/C also since Friday. He affirmed taking NSAIDs periodically for his back. He reported that he feels dehydration. He did not affirm CP. Family History: his nephew has a hx of renal myeloma (he is patient of mine and is now off dialysis s/p chemo). Past Med Surg Social Fam HX - Past Medical History Medical history: GERD, hypertension Psychiatric history: no psych history - Past Surgical History Surgical History: non-contributory - Social History Smoking Status: Never smoker Smokeless Tobacco Status: No Alcohol use: occasionally Drug use: none Medications and Allergies Acetaminophen [Tylenol] 500 mg PO DAILY PRN 06/07/18 [History] Aspirin [Ecotrin] 325 mg PO DAILY 06/07/18 [History] Gabapentin [Neurontin] 600 mg PO BID 06/07/18 [History] Latanoprost [Xalatan] 1 drop OP HS 06/07/18 [History] Lisinopril/Hydrochlorothiazide [Zestoretic 10-12.5 mg Tablet] 2 each PO DAILY 06/07/18 [History] Naproxen [Naprosyn] 500 mg PO DAILY PRN 06/07/18 [History] Omeprazole [PriLOSEC] 20 mg PO BID 06/07/18 [History] Allergy/AdvReac Type Severity Reaction Status Date / Time Penicillins [PCN] Allergy Hives Verified 09/14/15 12:32 Review of Systems All Systems: reviewed and no additional remarkable complaints except as stated Exam - Vital Signs Vital signs: Initial Vital Signs Temp Pulse Resp BP Pulse Ox 97.7 F 104 16 77/59 94 06/07/18 17:31 06/07/18 17:31 06/07/18 17:31 06/07/18 17:31 06/07/18 17:31 Vital Signs - Last 8 Hours Temp Pulse Resp BP Pulse Ox 06/08/18 10:58 98.0 F 75 16 113/68 96 06/08/18 08:43 97.6 F 70 16 128/80 98 06/08/18 06:03 19 115/64 Intake and Output 06/07/18 06/08/18 06/08/18 23:59 07:59 15:59 Intake Total 3000 / 3000 0 / 0 Output Total 1100 / 1100 Balance 3000 / 3000 -1100 / -1100 Intake: IV Fluids 3000 / 3000 0 / 0 0.9 % Sodium Chloride 1,000 ML 3000 / 3000 @ 3750 mls/hr IVC .Q16M ONE Rx# :[id number] Heparin 25,000 UNIT/250 ML D5W 0 / 0 25,000 unit In 250 ml @ 14 UNIT /KG/HR 13.463 mls/hr IVC . [id number] LARRY Rx#:[id number] Output: Catheter 1100 / 1100 Other: Weight 96.162 kg - General Appearance General appearance: well-developed, well-nourished, appears started age, obese EENT: ATNC, PERRL, mucous membranes moist Neck: supple Respiratory: clear Cardiology: edema (pitting edema up to the thighs b/l), regular rate, regular rhythm, normal S1, normal S2 Gastrointestinal: normoactive bowel sounds, no tenderness, no guarding Integumentary: warm and dry Neurologic: no focal deficit, no asterixis, alert and oriented x3 Musculoskeletal: no deformities, no erythema, no cyanosis, no clubbing Psychiatric: mood/affect appropriate, cooperative Results - Lab Results 06/07/18 18:20 06/07/18 18:20 Most recent lab results Calcium 9.0 mg/dL (8.6-10.3) 06/07/18 18:20 Consult Discharge Plan - Plan Referrals: Oswald Gonzales DO [Primary Care Provider] -
[2018-06-08] MEDS: 0.9 % Sodium Chloride 1,000 ML IVC SCH (12:45)
--- NOTE | 2018-06-08 16:42 | Electrocardiograph Report ---
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
--- NOTE | 2018-06-08 16:53 | Vascular/Endovasc Consult Note ---
Date of Encounter: 06/08/18 Time of Encounter: 16:50 Assessment and Plan (1) Lumbar back pain Current Visit: Yes Status: Chronic Patient has chronic low back pain. He is status post previous lumbar spine surgery. (2) Acute renal failure Current Visit: Yes Status: Acute Patient was found to have acute renal injury pattern on his admission. He has been seen by nephrology in consultation. The patient is undergoing hydration therapy. Nephrotoxins to be avoided. Any consideration of the use of thrombolytics for left lower extremity would need to be tempered as contrast is necessary for appropriate use of this agent and at this point any exposure to contrast is contraindicated. Qualifiers: Acute renal failure type: unspecified Qualified Code(s): N17.9 - Acute kidney failure, unspecified (3) Left leg DVT Current Visit: Yes Status: Acute Acute left lower extremity DVT. Patient is undergoing intravenous heparin therapy which is appropriate at this time. Eventually he will need to be converted to oral agents which due to his renal situation will most likely need to be warfarin therapy. He will also need to have knee-high compression stockings as an outpatient. I placed him in the venous position with his knees and ankles higher than the level of his heart. Given instructions to him and his family about maintaining this position while in the hospital and also to use his position when he is at home to reduce his lower extremity edema. Qualifiers: Affected thrombotic vein of extremity: unspecified vein of extremity Chronicity: unspecified Qualified Code(s): I82.402 - Acute embolism and thrombosis of unspecified deep veins of left lower extremity (4) Superficial thrombophlebitis of left leg Current Visit: Yes Status: Acute Patient has superficial thrombophlebitis on recent venous duplex scan. Patient is undergoing anticoagulation therapy for DVT. - History of Present Illness Consult date: 06/08/18 Consult reason: Left lower extremity DVT Chief complaint: Left lower extremity pain and swelling History of present illness: Mr. Manjarrez is a 78 year old male who was admitted to the hospital yesterday because of progressive left lower extremity pain and swelling. The patient notes that when he went to bed this past night he had no lower extremity symptoms. 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 He noted some swelling of the leg late Friday night. On Saturday when he awoke there was more swelling and he noted that to his . This was progressive over Friday and Friday he sought medical attention was admitted. Venous duplex scan demonstrated a left lower extremity deep venous thrombosis and superficial vein thrombophlebitis. The patient was admitted and placed on intravenous heparin. He was also found to have markedly abnormal renal functions with acute kidney injury syndrome. Nephrology was asked to see the patient as well and they are following him. Intravenous hydration has been initiated. Of note the patient had undergone spine surgeries at [facility] in 2013. Later that month he developed a pulmonary embolism. Patient was treated with anticoagulation with Coumadin for 6 months and had an IVC filter placed on the night of admission. That IVC filter has remained in position since that time. Patient had a CT angiogram performed of his abdomen and pelvis yesterday and the images of which I have reviewed. This demonstrates the IVC filter to be in appropriate position in the infrarenal inferior vena cava. The patient has no history of thrombophilia. He denies any recent issues with nausea and vomiting or infections or fevers. He did have a bladder infection that was treated successfully in March 2018. The patient has chronic low back pain and he is undergone previous spinal surgery. Past Med Surg Social Fam HX - Past Medical History Medical history: GERD, hypertension Psychiatric history: no psych history - Past Surgical History Surgical History: non-contributory, IVC Filter, orthopedic, other (Spine surgery) - Social History Smoking Status: Never smoker Smokeless Tobacco Status: No Alcohol use: occasionally Drug use: none Medications and Allergies Acetaminophen [Tylenol] 500 mg PO DAILY PRN 06/07/18 [History] Aspirin [Ecotrin] 325 mg PO DAILY 06/07/18 [History] Gabapentin [Neurontin] 600 mg PO BID 06/07/18 [History] Latanoprost [Xalatan] 1 drop OP HS 06/07/18 [History] Lisinopril/Hydrochlorothiazide [Zestoretic 10-12.5 mg Tablet] 2 each PO DAILY 06/07/18 [History] Naproxen [Naprosyn] 500 mg PO DAILY PRN 06/07/18 [History] Omeprazole [PriLOSEC] 20 mg PO BID 06/07/18 [History] Allergy/AdvReac Type Severity Reaction Status Date / Time Penicillins [PCN] Allergy Hives Verified 09/14/15 12:32 All Systems Review: The remainder of the systems were reviewed and are negative Exam Vital Signs, Last 4 Hours Temp Pulse Resp BP Pulse Ox 06/08/18 16:29 97.6 F 82 15 110/63 96 General: Present: Conversant, No Apparent Distress, Well developed, Well nourished HEENT: Present: Atraumatic, Normocephaly, Trachea midline Neck: Absent: JVD, Left Carotid bruit, Right Carotid bruit, Midline deformity, Tracheal deviation Cardiac: Present: Reg Rate and Rhythm, Normal S1 and S2, No Murmur Lungs: Present: Normal Breath Sounds Neuro: Present: Alert and responsive, No focal deficits noted, Cranial nerves grossly intact Abdomen: Present: Soft, Non-tender. Absent: Masses Vascular: Present: Edema (Patient has marked edema of the left lower extremity involving the foot and calf and thigh. Swelling is relatively tense. His feet or upper or warm to the touch and pink. He has normal capillary refill. There are no findings to suggest phlegmasia.) Skin: Present: No rashes noted on visualized skin Consult Discharge Plan - Plan Referrals: Oswald Gonzales DO [Primary Care Provider] -
[2018-06-08] MEDS: Gabapentin 300 MG CAPSULE PO SCH (20:04)
[2018-06-08 21:24] LABS: Protein/Creatinine Ratio,Urine 0.28 mg/mg (0.00-0.20)
[2018-06-09 00:08] LABS: Complement C3 139 mg/dL (87-200)
[2018-06-09] MEDS: 0.9 % Sodium Chloride 1,000 ML IVC SCH ×2 (01:34→05:47)
[2018-06-09] MEDS: Heparin 25,000 UNIT/250 ML D5W 25,000 UNIT/250 ML IV.SOLN IVC SCH ×2 (03:51→17:01)
[2018-06-09 04:51] LABS: Basophils % 0.3 %; Eosinophils # 0.1 K/mcL (0.0-0.6); Hematocrit 36.2 % (37.5-50.1); Hemoglobin 12.1 g/dL (12.9-16.9); Immature Granulocytes % 0.4 % (0-4); Lymphocytes # 1.9 K/mcL (0.6-4.6); Mean Corpuscular HGB Conc 33.4 g/dL (31.6-35.5); Mean Corpuscular Hemoglobin 30.6 pg (28.0-33.3); Mean Corpuscular Volume 91.6 fL (83.0-100.0); Mean Platelet Volume 10.5 fL (9.4-12.4); Monocytes # 0.6 K/mcL (0.0-1.3); Monocytes % 7.5 %; Neutrophils # 5.3 K/mcL (1.6-8.9); Platelet Count 104 K/mcL (140-400); Red Blood Count 3.95 M/mcL (4.19-5.50); Red Cell Distribution Width 13.7 % (11.5-14.5); Segmented Neutrophils % 66.8 %
[2018-06-09 05:09] LABS: Albumin 3.7 g/dL (3.5-5.7); Magnesium 1.9 mg/dL (1.6-2.6); Phosphorous 2.5 mg/dL (2.7-4.5); Uric Acid 8.8 mg/dL (2.3-7.6)
[2018-06-09 05:10] LABS: Calcium 8.2 mg/dL (8.6-10.3); Potassium 3.8 mEq/L (3.5-5.1)
--- NOTE | 2018-06-09 06:49 | Event Note ---
Date of Encounter: 06/09/18 Time of Encounter: 06:47 - Nephrology Event Note Nephrology Chart Update His renal function has significantly responded and improved with acceptable UOP. I have ordered an DANN and CKD work up, so he should follow up with Nephrology in about a month with a BMP checked in about a week after discharge. I will sign-off at this point, but please feel free to call or page me with any Renal questions. Thank you.
[2018-06-09] MEDS: Gabapentin 300 MG CAPSULE PO SCH ×2 (08:16→21:03)
[2018-06-09] MEDS ORDERED: Aspirin Enteric Coated 325 MG Tablet PO SCH (09:00)
--- NOTE | 2018-06-09 10:42 | Vascular/Endovas Progress Note ---
Date of Encounter: 06/09/18 Time of Encounter: 10:40 - Assessment and plan (1) Lumbar back pain Current Visit: Yes Status: Chronic Patient has chronic low back pain. He is status post previous lumbar spine surgery. (2) Acute renal failure Current Visit: Yes Status: Acute Renal function has made significant improvement from yesterday and the serum creatinine is now approximately 1.6. Patient has had good urinary output overnight. Qualifiers: Acute renal failure type: unspecified Qualified Code(s): N17.9 - Acute kidney failure, unspecified (3) Left leg DVT Current Visit: Yes Status: Acute Acute left lower extremity DVT. Patient is undergoing intravenous heparin therapy which is appropriate at this time. Eventually he will need to be converted to oral agents which due to his renal situation will most likely need to be warfarin therapy. He will also need to have knee-high compression stockings as an outpatient. I placed him in the venous position with his knees and ankles higher than the level of his heart. Given instructions to him and hi s family about maintaining this position while in the hospital and also to use his position when he is at home to reduce his lower extremity edema. Mild improvement of the left lower extremity edema overnight with continued IV heparin therapy and elevation. Qualifiers: Affected thrombotic vein of extremity: unspecified vein of extremity Chronicity: unspecified Qualified Code(s): I82.402 - Acute embolism and thromb osis of unspecified deep veins of left lower extremity (4) Superficial thrombophlebitis of left leg Current Visit: Yes Status: Acute Patient has superficial thrombophlebitis on recent venous duplex scan. Patient is undergoing anticoagulation therapy for DVT. - Subjective Interval history: No new events overnight. Patient had to get up out of bed frequently to urinate due to the IV hydration protocol for his acute kidney injury. He states his left lower extremity feels about the same as yesterday. Vital Signs, Last 4 Hours Temp Pulse Resp BP Pulse Ox 06/09/18 07:50 97.8 F 71 18 111/66 94 - Physical Examination General: Present: Conversant HEENT: Present: Atraumatic Vascular: Present: Edema (Edema of the left lower extremity is essentially the same as yesterday. There is however some decrease in the tenseness of the edema at both the calf and thigh region. Still no findings to suggest phlegmasia.) Results 06/09/18 03:54 06/09/18 03:54 Lab Results, Last 24 hours 06/09/18 06/09/18 06/09/18 03:54 03:54 03:54 WBC 7.9 D Hgb 12.1 L D Hct 36.2 L Plt Count 104 L Sodium 140 Potassium 3.8 Chloride 103 Carbon Dioxide 20 L BUN 40 H Creatinine 1.65 H Glucose 130 H Calcium 8.2 L Magnesium 1.9 Consult Discharge Plan - Plan Referrals: Oswald Gonzales DO [Primary Care Provider] -
--- NOTE | 2018-06-09 11:45 | Pain Management Consultation ---
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 We had him scheduled to do lateral branch ablation today, but this hospital admission is taking precedence. Suggestions: 1. Initiate oxycodone 5 mg 1 tab every 4 hours when necessary pain in addition to acetaminophen and topical lidocaine 2. Upon discharge, the patient could be provided with a short amount of oxycodone until I can get his ablations repeated. 3. Once he is discharged, we can proceed with lateral branch ablation. Anticoagulation would not hinder this therapy. He would not have to pause anticoagulation for this treatment. The assessment and plan as outlined above was discussed with the patient and/or family members who expressed understanding and agreement. All questions were answered. History of Present Illness Chief complaint: back pain HPI: Mr. Manjarrez is a 78 year old male suffering with deep aching lower back pain that does not radiate into the legs. The pain has been present for over 6 months. Pain score is typically 10/10. Pain worse with walking and standing; medication and physical therapy did not alleviate pain. Pain causes inability to do basic work around the home such as cooking and cleaning. Past Med Surg Social Fam HX - Past Medical History Medical history: GERD, hypertension Psychiatric history: no psych history - Past Surgical History Surgical History: non-contributory - Social History Smoking Status: Never smoker Smokeless Tobacco Status: No Alcohol use: occasionally Drug use: none Medications and Allergies Acetaminophen [Tylenol] 500 mg PO DAILY PRN 06/07/18 [History] Aspirin [Ecotrin] 325 mg PO DAILY 06/07/18 [History] Gabapentin [Neurontin] 600 mg PO BID 06/07/18 [History] Latanoprost [Xalatan] 1 drop OP HS 06/07/18 [History] Lisinopril/Hydrochlorothiazide [Zestoretic 10-12.5 mg Tablet] 2 each PO DAILY 06/07/18 [History] Naproxen [Naprosyn] 500 mg PO DAILY PRN 06/07/18 [History] Omeprazole [PriLOSEC] 20 mg PO BID 06/07/18 [History] Allergy/AdvReac Type Severity Reaction Status Date / Time Penicillins [PCN] Allergy Hives Verified 09/14/15 12:32 Review of Systems - Constitutional Constitutional ROS IM: no photophobia, no phonophobia, no daytime sleepiness, no fever(s), no stops breathing during sleep - EENT Nose, mouth and throat: no headache(s), no neck pain, no neck trauma - Cardiovascular Cardiovascular ROS: no chest pain, no leg edema, no lightheadedness - Respiratory Respiratory: no pain on inspiration, no pain with cough - Gastrointestinal Gastrointestinal: no abdominal pain, no constipation, no diarrhea, no heartburn - Genitourinary Genitourinary ROS: no difficulty urinating, no flank pain, no urinary hesitancy - Musculoskeletal Musculoskeletal ROS: no muscle weakness, no numbness, no radiating pain into limb, no tingling - Integumentary Integumentary: no erythema, no lesions, no swelling - Neurological Neurological ROS: no abnormal gait, no behavioral changes, no focal weakness, no radicular pain - Psychiatric Psychiatric general: no anxiety, no confusion, no depression - Hematologic/Lymphatic Hematologic/Lymphatic pediatric: no easy bleeding, no easy bruising Physical Exam Initial Vital Signs Temp Pulse Resp BP Pulse Ox 97.7 F 104 16 77/59 94 06/07/18 17:31 06/07/18 17:31 06/07/18 17:31 06/07/18 17:31 06/07/18 17:31 - Additional Findings EYES:: pupils equal and round, no myosis. SKIN:: no areas of echymoses or petechiae CARDIOVASCULAR:: pitting lower limb edema left more than right PULMONARY:: Quiet, normal respiratory pattern. GASTROINTESTINAL:: soft MUSCULOSKELETAL ROM:: Active flexion and extension are reduced in the lumbar area. NEUROLOGIC SENSATION:: hypesthesia is not noted in lower extremity dermatomes. PSYCHIATRIC:: ORIENTATION:: awake and alert. INSIGHT:: good awareness of illness. AFFECT:: pleasant. Radiology Images Viewed By Me:: 06/08/2018 lumbar MRI shows posterior L4-L5 fusion. There is severe spinal stenosis at L2-L3 from disc degeneration and a slight retrolisthesis as well as lumbosacral spondylosis. Renal function depressed, but recovering on this admission. I have reviewed and agree with information documented in the scribed documentation, ROS, patient medications, allergies, medical history, surgical history, social history, and family history. Results - Labs 06/09/18 03:54 06/09/18 03:54 Abnormal lab results RBC 3.95 M/mcL (4.19-5.50) L 06/09/18 03:54 Hgb 12.1 g/dL (12.9-16.9) L D 06/09/18 03:54 Hct 36.2 % (37.5-50.1) L 06/09/18 03:54 Plt Count 104 K/mcL (140-400) L 06/09/18 03:54 PT 12.7 Seconds (9.4-12.1) H 06/08/18 04:45 Carbon Dioxide 20 mEq/L (23-29) L 06/09/18 03:54 BUN 40 mg/dL (8-23) H 06/09/18 03:54 Creatinine 1.65 mg/dL (0.70-1.30) H 06/09/18 03:54 Est GFR ( Amer) 49 (> 60) L 06/09/18 03:54 Est GFR (Non-Af Amer) 41 (> 60) L 06/09/18 03:54 Glucose 130 mg/dL (70-105) H 06/09/18 03:54 Calculated Osmolality 302 (280-300) H 06/09/18 03:54 Lactic Acid 2.6 mmol/L (0.5-2.2) H 06/07/18 22:04 Uric Acid 8.8 mg/dL (2.3-7.6) H 06/09/18 03:54 Calcium 8.2 mg/dL (8.6-10.3) L 06/09/18 03:54 Phosphorus 2.5 mg/dL (2.7-4.5) L 06/09/18 03:54 Urine Clarity Cloudy (Clear) A 06/07/18 20:08 Ur Specific [place] 1.026 (1.010-1.025) H 06/07/18 20:08 Urine Protein 30 mg/dL (Neg-Trace) H 06/07/18 20:08 Urine Ketones Trace mg/dL (Negative) H 06/07/18 20:08 Urine Bilirubin Small (Negative) H 06/07/18 20:08 Ur Leukocyte Esterase Small (Negative) H 06/07/18 20:08 Urine Microscopic RBC 15-30 per hpf (0-3) H 06/07/18 20:08 Urine Microscopic WBC 15-30 per hpf (0-3) H 06/07/18 20:08 Ur Squamous Epith Cells Many per lpf (None-Few) H 06/07/18 20:08 Hyaline Casts Many per lpf (None-Few) H 06/07/18 20:08 Ur Culture Indicated? NO. (NO) A 06/07/18 20:08 Microalb/Creat Ratio 37 mcg/mg (Less than 30) H 06/08/18 21:00 Protein/Creatinin Ratio 0.28 mg/mg (0.00-0.20) H 06/08/18 21:00 Urine Total Protein 16 mg/dL (1-14) H 06/08/18 21:00 Diabetes panel 06/09/18 06/09/18 Range/Units 03:54 03:54 Sodium 140 (136-145) mEq/L Potassium 3.8 (3.5-5.1) mEq/L Chloride 103 (98-107) mEq/L Carbon Dioxide 20 L (23-29) mEq/L BUN 40 H (8-23) mg/dL Creatinine 1.65 H (0.70-1.30) mg/dL Glucose 130 H (70-105) mg/dL Calcium 8.2 L (8.6-10.3) mg/dL Albumin 3.7 (3.5-5.7) g/dL Calcium panel 06/09/18 06/09/18 Range/Units 03:54 03:54 Calcium 8.2 L (8.6-10.3) mg/dL Phosphorus 2.5 L (2.7-4.5) mg/dL Albumin 3.7 (3.5-5.7) g/dL Pituitary panel 06/09/18 Range/Units 03:54 Sodium 140 (136-145) mEq/L Potassium 3.8 (3.5-5.1) mEq/L Chloride 103 (98-107) mEq/L Carbon Dioxide 20 L (23-29) mEq/L BUN 40 H (8-23) mg/dL Creatinine 1.65 H (0.70-1.30) mg/dL Glucose 130 H (70-105) mg/dL Calcium 8.2 L (8.6-10.3) mg/dL Adrenal panel 06/09/18 06/09/18 Range/Units 03:54 03:54 Sodium 140 (136-145) mEq/L Potassium 3.8 (3.5-5.1) mEq/L Chloride 103 (98-107) mEq/L Carbon Dioxide 20 L (23-29) mEq/L BUN 40 H (8-23) mg/dL Creatinine 1.65 H (0.70-1.30) mg/dL Glucose 130 H (70-105) mg/dL Calcium 8.2 L (8.6-10.3) mg/dL Albumin 3.7 (3.5-5.7) g/dL All other labs normal. Consult Discharge Plan - Plan Referrals: Oswald Gonzales DO [Primary Care Provider] -
--- NOTE | 2018-06-09 12:01 | Internal Med Progress Note ---
Hospitalist Progress Note - Encounter Date of Encounter: 06/09/18 Time of Encounter: 09:00 - Subjective Interval History: Patient still complaining of back pain, denies fecal/urinary incontinence. Patient has left leg swelling. Per patient's , patient drives whole day on Friday and had left leg swelling started from Friday. - Exam Vitals: Temp Pulse Resp BP Pulse Ox 97.8 F 71 18 111/66 94 06/09/18 07:50 06/09/18 07:50 06/09/18 07:50 06/09/18 07:50 06/09/18 07:50 Exam: Pt is AAO x 3, in NAD HEENT: NC/AT, PERRL Neck: Supple, no JVD, no LAD Lungs: CTA b/l Heart: S1S2, RRR Abd: Soft, nontender, BS present Ext: ROM wnl, left leg swelling with calf tenderness Neuro: No focal deficit - Assessment and Plan (1) Lumbar back pain Current Visit: Yes Status: Chronic Assessment and Plan: Patient with past medical history significant for spinal stenosis with lumbar fusion and reports of chronic back pain that has gotten worse and was scheduled to see his spine specialists on 06/09/18. - MRI has been done, shows severe lumbar spine stenosis. - Patient has surgery by Dr. Sosa, will consult Dr. Sosa for pain management and further management for spinal stenosis. (2) Acute renal failure Current Visit: Yes Status: Acute Assessment and Plan: Patient found to have a creatinine of 4.44 on admission with a GFR of 13;prior creatinine in 2018 was 1.46 Nephrology consulted and appreciate recommendations Responded well to IV fluid, continue IV fluid. 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 - Continue heparin drip - May need long-term anticoagulation, consider coumadin. (5) DVT prophylaxis Current Visit: Yes Status: Acute Assessment and Plan: Patient on heparin drip as above (6) HTN (hypertension), benign Current Visit: Yes Status: Acute Assessment and Plan: Hold home medications lisinopril and hydrochlorothiazide because of DANN, Place patient on amlodipine - Time Spent with Patient Total time spent is greater than 50% in coordination of care (as documented) at patient's floor/unit and/or counseling patient: 40 minutes Greater than 35 minutes Plan of Care Discussed with: patient Internal Medicine: Result - Labs CBC & Chem 7: 06/09/18 03:54 06/09/18 03:54 Labs: Short CBC 06/09/18 Range/Units 03:54 WBC 7.9 D (4.3-11.1) K/mcL Hgb 12.1 L D (12.9-16.9) g/dL Hct 36.2 L (37.5-50.1) % Plt Count 104 L (140-400) K/mcL Neutrophils # 5.3 (1.6-8.9) K/mcL BMP 06/09/18 03:54 Sodium 140 Potassium 3.8 Chloride 103 Carbon Dioxide 20 L BUN 40 H Creatinine 1.65 H Glucose 130 H Calcium 8.2 L Liver Function 06/09/18 Range/Units 03:54 Albumin 3.7 (3.5-5.7) g/dL - ABG Interpretation ABG results: PT/INR, D-dimer PT 12.7 Seconds (9.4-12.1) H 06/08/18 04:45 - Impressions Impressions Lumbar Spine MRI 06/08/18 20:06 IMPRESSION: 1. Sequelae of bilateral laminectomies and posterior lumbar fusion at L4-5. 2. Severe spinal canal stenosis, severe right and moderate left neural foraminal narrowing at L2-3, as described above. 3. Moderate to severe spinal canal stenosis with severe right and mild left neural foraminal narrowing at L5-S1, as described above. 4. Moderate to severe spinal canal stenosis and moderate bilateral neural foraminal narrowing at L3-4, as described above. D/ / 06/08/2018 12:52:49 Tim Granados MD / [email or web address] Interpreting Provider: Tim Granados MD Consult Discharge Plan - Plan Referrals: Sevy,Oswald C, DO [Primary Care Provider] - (2) Acute renal failure Qualifiers: Acute renal failure type: unspecified Qualified Code(s): N17.9 - Acute kidney failure, unspecified (4) Left leg DVT Qualifiers: Affected thrombotic vein of extremity: unspecified vein of extremity Chronicity: unspecified Qualified Code(s): I82.402 - Acute embolism and thrombosis of unspecified deep veins of left lower extremity
[2018-06-09] MEDS: amLODIPine 5 MG TABLET PO SCH (12:50)
[2018-06-09 12:58] LABS: INR 1.1
[2018-06-09] MEDS: *HR* OxyCODONE Immed Rel 5 MG TABLET PO PRN ×2 (14:25→18:53)
[2018-06-09] MEDS ORDERED: *HR* Warfarin 5 MG TABLET PO ONE (18:00)
[2018-06-09] MEDS ORDERED: Warfarin perPT PO PRN (18:00)
[2018-06-09] MEDS: Latanoprost 2.5 ML BOTTLE BOTH EYES SCH (21:25)
[2018-06-10] MEDS: Heparin 25,000 UNIT/250 ML D5W 25,000 UNIT/250 ML IV.SOLN IVC SCH (01:25)
[2018-06-10] MEDS: *HR* OxyCODONE Immed Rel 5 MG TABLET PO PRN ×4 (01:29→22:49)
[2018-06-10 04:52] LABS: Basophils % 0.4 %; Eosinophils # 0.1 K/mcL (0.0-0.6); Hematocrit 33.9 % (37.5-50.1); Hemoglobin 11.6 g/dL (12.9-16.9); Immature Granulocytes % 0.7 % (0-4); Immature Platelets 2.6 % (1.1-6.1); Lymphocytes # 1.5 K/mcL (0.6-4.6); Lymphocytes % 21.7 %; Mean Corpuscular HGB Conc 34.2 g/dL (31.6-35.5); Mean Corpuscular Hemoglobin 31.4 pg (28.0-33.3); Mean Corpuscular Volume 91.6 fL (83.0-100.0); Mean Platelet Volume 10.2 fL (9.4-12.4); Monocytes # 0.6 K/mcL (0.0-1.3); Monocytes % 7.9 %; Platelet Count 101 K/mcL (140-400); Red Cell Distribution Width 13.4 % (11.5-14.5); Segmented Neutrophils % 68.3 %
[2018-06-10 05:00] LABS: INR 1.1; Prothrombin Time 12.7 Seconds (9.4-12.1)
[2018-06-10 05:02] LABS: Neutrophils # 4.8 K/mcL (1.6-8.9)
[2018-06-10 05:09] LABS: BUN/Creatinine Ratio 24 (6-26); Blood Urea Nitrogen 28 mg/dL (8-23); Calcium 8.5 mg/dL (8.6-10.3); Carbon Dioxide 22 mEq/L (23-29); Chloride 105 mEq/L (98-107); Glucose 140 mg/dL (70-105); Osmolality,Calculated 286 (280-300); Potassium 3.8 mEq/L (3.5-5.1); Sodium 134 mEq/L (136-145); eGFR For Non-African Americans 59 (> 60)
[2018-06-10] MEDS: Aspirin Enteric Coated 81 MG Tablet PO SCH (07:36)
[2018-06-10] MEDS: amLODIPine 5 MG TABLET PO SCH (07:37)
[2018-06-10] MEDS: Gabapentin 300 MG CAPSULE PO SCH ×2 (07:37→20:48)
--- NOTE | 2018-06-10 09:03 | Vascular/[facility] Progress Note ---
Date of Encounter: 06/10/18 Time of Encounter: 08:20 - Assessment and plan (1) Lumbar back pain Current Visit: Yes Status: Chronic Patient has chronic low back pain. He is status post previous lumbar spine surgery. (2) Acute renal failure Current Visit: Yes Status: Acute Renal function continues to improve. Qualifiers: Acute renal failure type: unspecified Qualified Code(s): N17.9 - Acute kidney failure, unspecified (3) Left leg DVT Current Visit: Yes Status: Acute Left lower extremity DVT is stable. Patient is responding to anticoagulation and elevation therapy. Patient will need compression stockings upon discharge. Qualifiers: Affected thrombotic vein of extremity: unspecified vein of extremity Chron icity: unspecified Qualified Code(s): I82.402 - Acute embolism and thrombosis of unspecified deep veins of left lower extremity (4) Superficial thrombophlebitis of left leg Current Visit: Yes Status: Acute Patient has superficial thrombophlebitis on recent venous duplex scan. Patient is undergoing anticoagulation therapy for DVT. - Subjective Interval history: No new complaints. Left lower extremity feels about the same. The patient was started on warfarin therapy last night. Vital Signs, Last 4 Hours Temp Pulse Resp BP Pulse Ox 06/10/18 07:01 98.0 F 71 17 121/72 96 - Physical Examination General: Present: Conversant, No Apparent Distress Vascular: Present: Edema (Left lower extremity edema is improved. The calf and thigh are much softer than yesterday. 4 remains warm and pink. No signs of cellulitis. No signs of phlegmasia.) Results 06/10/18 04:13 06/10/18 04:13 Lab Results, Last 24 hours 06/09/18 06/10/18 06/10/18 12:35 04:13 04:13 WBC 7.0 Hgb 11.6 L Hct 33.9 L Plt Count 101 L INR 1.1 1.1 Sodium Potassium Chloride Carbon Dioxide BUN Creatinine Glucose Calcium 06/10/18 04:13 WBC Hgb Hct Plt Count INR Sodium 134 L Potassium 3.8 Chloride 105 Carbon Dioxide 22 L BUN 28 H Creatinine 1.19 Glucose 140 H Calcium 8.5 L Consult Discharge Plan - Plan Referrals: Oswald Gonzales DO [Primary Care Provider] -
--- NOTE | 2018-06-10 10:29 | Internal Med Progress Note ---
Hospitalist Progress Note - Encounter Date of Encounter: 06/10/18 Time of Encounter: 09:00 - Subjective Interval History: Patient has less back pain after started pain medication. Also has less left leg swelling/pain. - Exam Vitals: Temp Pulse Resp BP Pulse Ox 98.0 F 71 17 121/72 96 06/10/18 07:01 06/10/18 07:01 06/10/18 07:01 06/10/18 07:01 06/10/18 07:01 Exam: Pt is AAO x 3, in NAD HEENT: NC/AT, PERRL Neck: Supple, no JVD, no LAD Lungs: CTA b/l Heart: S1S2, RRR Abd: Soft, nontender, BS present Ext: ROM wnl, left leg swelling, improved, no calf tenderness Neuro: No focal deficit - Assessment and Plan (1) Lumbar back pain Current Visit: Yes Status: Chronic Assessment and Plan: Patient with past medical history significant for spinal stenosis with lumbar fusion and reports of chronic back pain that has gotten worse and was scheduled to see his spine specialists on 06/09/18. - MRI has been done, shows severe lumbar spine stenosis. - Patient has surgery by Dr. Sosa, Dr. Sosa saw pt, on pain meds for pain management and plan for outpatient ablation after discharge. (2) Acute renal failure Current Visit: Yes Status: Acute Assessment and Plan: Patient found to have a creatinine of 4.44 on admission with a GFR of 13;prior creatinine in 2018 was 1.46 Nephrology consulted and appreciate recommendations Responded well to IV fluid. 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 - Continue heparin drip - May need long-term anticoagulation, consider coumadin. - Patient has history of IVC filter placement. CT abdomen shows IVC filter in situ (5) DVT prophylaxis Current Visit: Yes Status: Acute Assessment and Plan: Patient on heparin drip as above (6) HTN (hypertension), benign Current Visit: Yes Status: Acute Assessment and Plan: Hold home medications lisinopril and hydrochlorothiazide because of DANN, Place patient on amlodipine - Time Spent with Patient Total time spent is greater than 50% in coordination of care (as documented) at patient's floor/unit and/or counseling patient: 40 minutes Greater than 35 minutes Plan of Care Discussed with: patient Internal Medicine: Result - Labs CBC & Chem 7: 06/10/18 04:13 06/10/18 04:13 Labs: Short CBC 06/10/18 Range/Units 04:13 WBC 7.0 (4.3-11.1) K/mcL Hgb 11.6 L (12.9-16.9) g/dL Hct 33.9 L (37.5-50.1) % Plt Count 101 L (140-400) K/mcL Neutrophils # 4.8 (1.6-8.9) K/mcL BMP 06/10/18 04:13 Sodium 134 L Potassium 3.8 Chloride 105 Carbon Dioxide 22 L BUN 28 H Creatinine 1.19 Glucose 140 H Calcium 8.5 L - ABG Interpretation ABG results: PT/INR, D-dimer PT 12.7 Seconds (9.4-12.1) H 06/10/18 04:13 Consult Discharge Plan - Plan Referrals: Oswald Gonzales, [Primary Care Provider] - (2) Acute renal failure Qualifiers: Acute renal failure type: unspecified Qualified Code(s): N17.9 - Acute kidney failure, unspecified (4) Left leg DVT Qualifiers: Affected thrombotic vein of extremity: unspecified vein of extremity Chronicity: unspecified Qualified Code(s): I82.402 - Acute embolism and thrombosis of unspecified deep veins of left lower extremity
[2018-06-10] MEDS ORDERED: *HR* Warfarin 5 MG TABLET PO ONE (18:00)
[2018-06-10] MEDS: Latanoprost 2.5 ML BOTTLE BOTH EYES SCH (20:48)
[2018-06-11] MEDS: Heparin 25,000 UNIT/250 ML D5W 25,000 UNIT/250 ML IV.SOLN IVC SCH (00:31)
[2018-06-11 05:53] LABS: Basophils % 0.3 %; Eosinophils # 0.1 K/mcL (0.0-0.6); Eosinophils % 1.2 %; Hematocrit 34.2 % (37.5-50.1); Hemoglobin 11.5 g/dL (12.9-16.9); Immature Granulocytes % 1.1 % (0-4); Lymphocytes # 1.2 K/mcL (0.6-4.6); Lymphocytes % 18.7 %; Mean Corpuscular HGB Conc 33.6 g/dL (31.6-35.5); Mean Corpuscular Hemoglobin 30.6 pg (28.0-33.3); Mean Platelet Volume 9.8 fL (9.4-12.4); Monocytes # 0.5 K/mcL (0.0-1.3); Monocytes % 7.3 %; Neutrophils # 4.6 K/mcL (1.6-8.9); Platelet Count 110 K/mcL (140-400); Red Blood Count 3.76 M/mcL (4.19-5.50); Red Cell Distribution Width 13.2 % (11.5-14.5); Segmented Neutrophils % 71.4 %
[2018-06-11 05:58] LABS: INR 1.1; Prothrombin Time 12.9 Seconds (9.4-12.1)
[2018-06-11 06:12] LABS: BUN/Creatinine Ratio 20 (6-26); Blood Urea Nitrogen 20 mg/dL (8-23); Calcium 8.7 mg/dL (8.6-10.3); Carbon Dioxide 23 mEq/L (23-29); Chloride 104 mEq/L (98-107); Glucose 138 mg/dL (70-105); Osmolality,Calculated 287 (280-300); Potassium 4.1 mEq/L (3.5-5.1); Sodium 136 mEq/L (136-145); eGFR For Non-African Americans > 60 (> 60)
[2018-06-11] MEDS: *HR* Enoxaparin 100 MG/ML SYRINGE SQ SCH ×2 (07:52→20:05)
[2018-06-11] MEDS: amLODIPine 5 MG TABLET PO SCH (07:55)
[2018-06-11] MEDS: Gabapentin 300 MG CAPSULE PO SCH ×2 (07:56→20:05)
[2018-06-11] MEDS: Aspirin Enteric Coated 81 MG Tablet PO SCH (07:56)
[2018-06-11 09:52] LABS: ANA IgG by ELISA NONE DETECTED (None Detected); Myeloperoxidase Ab 0 AU/mL (0-19); Serine Protease-3 Antibody 0 AU/mL (0-19)
--- NOTE | 2018-06-11 09:55 | Vascular/[facility] Progress Note ---
Date of Encounter: 06/11/18 Time of Encounter: 09:53 - Assessment and plan (1) Lumbar back pain Current Visit: Yes Status: Chronic Patient has chronic low back pain. He is status post previous lumbar spine surgery. (2) Acute renal failure Current Visit: Yes Status: Resolved Renal function continues to improve. Qualifiers: Acute renal failure type: unspecified Qualified Code(s): N17.9 - Acute kidney failure, unspecified (3) Left leg DVT Current Visit: Yes Status: Acute Left lower extremity edema continues to improve with elevation and anticoagulation. Patient able to ambulate better. Patient for discharge in near future. I have given the patient a prescription for Lortab extremity compression stockings. Follow up with vascular surgery when necessary. Qualifiers: Affected thrombotic vein of extremity: unspecified vein of extremity Chronicity: unspecified Qualified Code(s): I82.402 - Acute embolism and thrombosis of unspecified deep veins of left lower extremity (4) Superficial thrombophlebitis of left leg Current Visit: Yes Status: Acute Patient has superficial thrombophlebitis on recent venous duplex scan. Patient is undergoing anticoagulation therapy for DVT. - Subjective Interval history: N left lower extremity continues to improve. Swelling has been decreasing overnight. Patient able to move lower extremity more freely. Vital Signs, Last 4 Hours Temp Pulse Resp BP Pulse Ox 06/11/18 08:02 96 06/11/18 06:49 97.6 F 66 14 138/87 96 - Physical Examination Vascular: Present: Edema (Edema all left thigh and calf continues to improve. Thigh and calf are soft. No tenderness to manipulation. Left foot is warm and pink.) Results 06/11/18 05:28 06/11/18 05:28 Lab Results, Last 24 hours 06/11/18 06/11/18 06/11/18 05:28 05:28 05:28 WBC 6.4 Hgb 11.5 L Hct 34.2 L Plt Count 110 L INR 1.1 Sodium 136 Potassium 4.1 Chloride 104 Carbon Dioxide 23 BUN 20 Creatinine 1.01 Glucose 138 H Calcium 8.7 Consult Discharge Plan - Plan Referrals: Oswald Gonzales DO [Primary Care Provider] -
[2018-06-11] MEDS: *HR* OxyCODONE Immed Rel 5 MG TABLET PO PRN ×2 (10:30→23:04)
--- NOTE | 2018-06-11 11:32 | Internal Med Progress Note ---
Hospitalist Progress Note - Encounter Date of Encounter: 06/11/18 Time of Encounter: 09:00 - Subjective Interval History: Patient feels less left leg swelling, no left leg pain. Patient has mild back pain which improved after pain medication started. Vitals are stable. - Exam Vitals: Temp Pulse Resp BP Pulse Ox 98.8 F 78 16 129/83 97 06/11/18 11:04 06/11/18 11:04 06/11/18 11:04 06/11/18 11:04 06/11/18 11:04 Exam: Pt is AAO x 3, in NAD HEENT: NC/AT, PERRL Neck: Supple, no JVD, no LAD Lungs: CTA b/l Heart: S1S2, RRR Abd: Soft, nontender, BS present Ext: ROM wnl, left leg swelling, improved, no calf tenderness Neuro: No focal deficit - Assessment and Plan (1) Lumbar back pain Current Visit: Yes Status: Chronic Assessment and Plan: Patient with past medical history significant for spinal stenosis with lumbar fusion and reports of chronic back pain that has gotten worse and was scheduled to see his spine specialists on 06/09/18. - MRI has been done, shows severe lumbar spine stenosis. - Patient has surgery by Dr. Sosa, Dr. Sosa saw pt, on pain meds for pain management and plan for outpatient ablation after discharge. (2) Acute renal failure Current Visit: Yes Status: Resolved Assessment and Plan: Patient found to have a creatinine of 4.44 on admission with a GFR of 13;prior creatinine in 2018 was 1.46 Nephrology consulted and appreciate recommendations Responded well to IV fluid. Creatinine level improved to normal level Avoid nephrotoxic medications, will hold hydrochlorothiazide, lisinopril, and NSAID, add amlodipine instead to control BP Encourage by mouth hydration As renal function improved, anticoagulation change to lovenox 1mg/kg sc q12hr (3) Acute urinary retention Current Visit: Yes Status: Acute Assessment and Plan: Gutierres catheter was placed in the ER due to urinary retention Now Gutierres catheter removed, patient urinated well without retention. 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 - Switch heparin drip to lovenox SC - May need long-term anticoagulation, consider coumadin. - Patient has history of IVC filter placement. CT abdomen shows IVC filter in situ (5) DVT prophylaxis Current Visit: Yes Status: Acute Assessment and Plan: Patient on lovenox as above (6) HTN (hypertension), benign Current Visit: Yes Status: Acute Assessment and Plan: Hold home medications lisinopril and hydrochlorothiazide because of DANN, Place patient on amlodipine - Time Spent with Patient Total time spent is greater than 50% in coordination of care (as documented) at patient's floor/unit and/or counseling patient: 30 minutes 25 - 35 minutes Plan of Care Discussed with: patient Internal Medicine: Result - Labs CBC & Chem 7: 06/11/18 05:28 06/11/18 05:28 Labs: Short CBC 06/11/18 Range/Units 05:28 WBC 6.4 (4.3-11.1) K/mcL Hgb 11.5 L (12.9-16.9) g/dL Hct 34.2 L (37.5-50.1) % Plt Count 110 L (140-400) K/mcL Neutrophils # 4.6 (1.6-8.9) K/mcL BMP 06/11/18 05:28 Sodium 136 Potassium 4.1 Chloride 104 Carbon Dioxide 23 BUN 20 Creatinine 1.01 Glucose 138 H Calcium 8.7 - ABG Interpretation ABG results: PT/INR, D-dimer PT 12.9 Seconds (9.4-12.1) H 06/11/18 05:28 Consult Discharge Plan - Plan Referrals: Oswald Gonzales, [Primary Care Provider] - (2) Acute renal failure Qualifiers: Acute renal failure type: unspecified Qualified Code(s): N17.9 - Acute kidney failure, unspecified (4) Left leg DVT Qualifiers: Affected thrombotic vein of extremity: unspecified vein of extremity Chronicity: unspecified Qualified Code(s): I82.402 - Acute embolism and thrombosis of unspecified deep veins of left lower extremity
[2018-06-11] MEDS ORDERED: *HR* Warfarin 5 MG TABLET PO ONE (18:00)
[2018-06-11] MEDS: Latanoprost 2.5 ML BOTTLE BOTH EYES SCH (20:06)
[2018-06-11 20:17] LABS: Alpha 2 Globulin (PEP) 0.89 g/dL (0.48-1.05); Beta Globulin (PEP) 0.86 g/dL (0.48-1.10)
[2018-06-11 21:34] LABS: Kappa Qnt Free Light Chains 1.32 mg/dL (0.33-1.94); Lambda Qnt Free Light Chains 1.06 mg/dL (0.57-2.63)
[2018-06-12] MEDS: *HR* OxyCODONE Immed Rel 5 MG TABLET PO PRN ×2 (03:59→11:09)
[2018-06-12 04:18] LABS: Basophils % 0.3 %; Eosinophils # 0.1 K/mcL (0.0-0.6); Eosinophils % 2.1 %; Hematocrit 34.5 % (37.5-50.1); Hemoglobin 11.7 g/dL (12.9-16.9); Lymphocytes # 1.4 K/mcL (0.6-4.6); Lymphocytes % 23.6 %; Mean Corpuscular HGB Conc 33.9 g/dL (31.6-35.5); Mean Corpuscular Volume 91.3 fL (83.0-100.0); Mean Platelet Volume 10.2 fL (9.4-12.4); Monocytes # 0.4 K/mcL (0.0-1.3); Monocytes % 7.1 %; Platelet Count 132 K/mcL (140-400); Red Blood Count 3.78 M/mcL (4.19-5.50); Red Cell Distribution Width 13.3 % (11.5-14.5); Segmented Neutrophils % 65.9 %
[2018-06-12 04:29] LABS: INR 1.3; Prothrombin Time 14.4 Seconds (9.4-12.1)
[2018-06-12 04:34] LABS: BUN/Creatinine Ratio 17 (6-26); Blood Urea Nitrogen 19 mg/dL (8-23); Calcium 9.1 mg/dL (8.6-10.3); Carbon Dioxide 24 mEq/L (23-29); Chloride 104 mEq/L (98-107); Glucose 120 mg/dL (70-105); Osmolality,Calculated 289 (280-300); Potassium 4.1 mEq/L (3.5-5.1); Sodium 138 mEq/L (136-145); eGFR For Non-African Americans > 60 (> 60)
[2018-06-12] MEDS: Gabapentin 300 MG CAPSULE PO SCH (08:10)
[2018-06-12] MEDS: amLODIPine 5 MG TABLET PO SCH (08:10)
[2018-06-12] MEDS: Aspirin Enteric Coated 81 MG Tablet PO SCH (08:10)
[2018-06-12] MEDS: *HR* Enoxaparin 100 MG/ML SYRINGE SQ SCH (09:09)
[2018-06-12 09:59] LABS: IFE Reflexed NOT DONE
[2018-06-12 11:04] VITALS: BP 129/77
--- NOTE | 2018-06-12 11:11 | Discharge Summary ---
Orders not resulted at time of discharge: Pending orders 06/08/18 01:18 Culture,Blood [BC] Stat 06/13/18 04:00 PT/INR [Prothrombin Time INR] [COAG] AM 0400 Date of Encounter: 06/12/18 Time of Encounter: 09:00 - Discharge Diagnosis (1) Lumbar back pain Priority: Secondary Status: Chronic (2) Acute renal failure Priority: Primary Status: Resolved Qualifiers: Acute renal failure type: unspecified Qualified Code(s): N17.9 - Acute kidney failure, unspecified (3) Acute urinary retention Priority: Primary Status: Acute (4) Left leg DVT Priority: Primary Status: Acute Qualifiers: Affected thrombotic vein of extremity: unspecified vein of extremity Chronicity: unspecified Qualified Code(s): I82.402 - Acute embolism and thrombosis of unspecified deep veins of left lower extremity (5) DVT prophylaxis Priority: Secondary Status: Acute (6) HTN (hypertension), benign Priority: Secondary Status: Acute Hospital course: Mr. Manjarrez is a 78 year old male presented to ER for back pain and left leg pain. L-spine MRI has been done, which shows severe stenosis. Pain management and spinal surgery consult saw patient, recommended outpatient ablation. Patient was also found left leg DVT, which is provoked by long time driving on Friday. 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 Patient was placed on heparin drip which later change to Lovenox sc as patient's renal function has improved. Patient was started by mouth Coumadin. Patient has DANN on admission, renal function back to normal level after hydration. After treatment, left leg swelling and pain has improved. Vitals are stable. Will DC patient home with by mouth Coumadin, bridged with Lovenox SC at this point. I have seen and examined the patient today. Patient denies leg pain. Mild back pain controlled by pain medications. Walk in room without difficulty. Vitals are stable. INR 1.3 today. Patient will DC home with Lovenox and Coumadin 5mg po daily. Patient will check PT/INR on Friday and follow-up with PCP for anticoagulation adjustment. Discharge discussed with: patient - Time Spent with Patient Total time spent providing and/or coordinating discharge services: 40 minutes Time spent: Greater than 30 minutes - Discharge Medications Prescriptions: New OxyCODONE Immed Rel [Roxicodone 5 MG] 5 mg PO Q4HR PRN 4 Days #24 tablet PRN Reason: Moderate to Severe Pain amLODIPine [Norvasc] 10 mg PO DAILY 30 Days #60 tablet Aspirin Enteric Coated [Aspirin EC] 81 mg PO DAILY 30 Days #30 tablet. Enoxaparin [Lovenox] 100 mg SQ Q12H 3 Days #6 syringe Lidocaine Patch [Lidoderm 5% patch] 2 each TP Q24H 12 Days #24 adh..patch Continue Omeprazole [PriLOSEC] 20 mg PO BID Gabapentin [Neurontin] 600 mg PO BID Latanoprost [Xalatan] 1 drop OP HS Acetaminophen [Tylenol] 500 mg PO DAILY PRN PRN Reason: Pain Discontinued Lisinopril/Hydrochlorothiazide [Zestoretic 10-12.5 mg Tablet] 2 each PO DAILY Naproxen [Naprosyn] 500 mg PO DAILY PRN PRN Reason: Pain Aspirin [Ecotrin] 325 mg PO DAILY Home Medications: Acetaminophen [Tylenol] 500 mg PO DAILY PRN 06/07/18 [History] Gabapentin [Neurontin] 600 mg PO BID 06/07/18 [History] Latanoprost [Xalatan] 1 drop OP HS 06/07/18 [History] Omeprazole [PriLOSEC] 20 mg PO BID 06/07/18 [History] Aspirin Enteric Coated [Aspirin EC] 81 mg PO DAILY 30 Days #30 tablet. 06/12/18 [Rx] Enoxaparin [Lovenox] 100 mg SQ Q12H 3 Days #6 syringe 06/12/18 [Rx] Lidocaine Patch [Lidoderm 5% patch] 2 each TP Q24H 12 Days #24 adh..patch 06/12/18 [Rx] OxyCODONE Immed Rel [Roxicodone 5 MG] 5 mg PO Q4HR PRN 4 Days #24 tablet 06/12/18 [Rx] Warfarin [Coumadin] 5 mg PO 1800 14 Days #14 tablet 06/12/18 [Rx] amLODIPine [Norvasc] 10 mg PO DAILY 30 Days #60 tablet 06/12/18 [Rx] Allergies/Adverse Reactions: Allergy/AdvReac Type Severity Reaction Status Date / Time Penicillins [PCN] Allergy Hives Verified 09/14/15 12:32 Date of admission: 06/08/18 15:25 Primary care physician: Oswald Gonzales DO Consults: 06/08/18 09:08 Consult to Vascular Surgery [CONS] Routine Consulting Provider: Vascular Surgery [facility] Reason for Consult: Provider order. Patient has DVT in left lower extremity. Call Completed: No 06/08/18 10:00 Consult to Pastoral Services [CONS] Routine Comment: 06/08/18 10:09 Consult to Nephrology [CONS] Routine Consulting Provider: Kidney Karina/LUCIANA/MANISH/MICHAEL Reason for Consult: Acute renal failure Call Completed: Yes 06/09/18 11:16 Consult to Pain Management [CONS] Routine Consulting Provider: Pain Mgt Interventional [facility] Reason for Consult: Back pain, spinal stenosis Call Completed: Yes Discharging clinician: Wanda Meadows Anticipated date of discharge: 06/12/18 - Constitutional Vitals: Temp Pulse Resp BP Pulse Ox 98.9 F 73 18 129/77 96 06/12/18 11:02 06/12/18 11:02 06/12/18 11:02 06/12/18 11:02 06/12/18 11:02 Exam: Pt is AAO x 3, in NAD HEENT: NC/AT, PERRL Neck: Supple, no JVD, no LAD Lungs: CTA b/l Heart: S1S2, RRR Abd: Soft, nontender, BS present Ext: ROM wnl, left leg swelling, improved, no calf tenderness Neuro: No focal deficit - Patient Status Disposition: Home Health Service Condition: Good Functional capacity at discharge: independent ambulation Overall status at discharge: patient is progressing back to baseline - Discharge Instructions Follow Up With: Oswald Gonzales DO [Primary Care Provider] - 06/15/18 - Diet and Activity Activity: increase activity as tolerated Diet: regular diet
--- NOTE | 2018-06-12 11:22 | Physician Discharge Referral ---
Home Health/Hosp Referral Info Transfer to: Home Health Provider in Charge Post Discharge: PCP - Diagnosis (1) Lumbar back pain Status: Chronic (2) Acute renal failure Status: Resolved (3) Acute urinary retention Status: Acute (4) Left leg DVT Status: Acute (5) DVT prophylaxis Status: Acute (6) HTN (hypertension), benign Status: Acute - Respiratory Orders Smoking Cessation: Smoking cessation has been advised. For more information, call the [place] Tobacco Quit Line at 1-932-NJGD-NOW. - Diet/Nutrition Diet/Nutrition Orders: Regular - Services Needed Following services are medically necessary services: Nursing, Home Health Aide, Physical Therapy, Occupational Therapy Other Treatments: Please check PT/INR on Friday06/15/18 - Transfer Medications Prescriptions: OxyCODONE Immed Rel [Roxicodone 5 MG] 5 mg PO Q4HR PRN 4 Days #24 tablet PRN Reason: Moderate to Severe Pain amLODIPine [Norvasc] 10 mg PO DAILY 30 Days #60 tablet Aspirin Enteric Coated [Aspirin EC] 81 mg PO DAILY 30 Days #30 tablet. Enoxaparin [Lovenox] 100 mg SQ Q12H 3 Days #6 syringe Lidocaine Patch [Lidoderm 5% patch] 2 each TP Q24H 12 Days #24 adh..patch Warfarin [Coumadin] 5 mg PO 1800 14 Days #14 tablet Home Medications: Acetaminophen [Tylenol] 500 mg PO DAILY PRN 06/07/18 [History] Gabapentin [Neurontin] 600 mg PO BID 06/07/18 [History] Latanoprost [Xalatan] 1 drop OP HS 06/07/18 [History] Omeprazole [PriLOSEC] 20 mg PO BID 06/07/18 [History] Aspirin Enteric Coated [Aspirin EC] 81 mg PO DAILY 30 Days #30 tablet. 06/12/18 [Rx] Enoxaparin [Lovenox] 100 mg SQ Q12H 3 Days #6 syringe 06/12/18 [Rx] Lidocaine Patch [Lidoderm 5% patch] 2 each TP Q24H 12 Days #24 adh..patch 06/12/18 [Rx] OxyCODONE Immed Rel [Roxicodone 5 MG] 5 mg PO Q4HR PRN 4 Days #24 tablet 06/12/18 [Rx] Warfarin [Coumadin] 5 mg PO 1800 14 Days #14 tablet 06/12/18 [Rx] amLODIPine [Norvasc] 10 mg PO DAILY 30 Days #60 tablet 06/12/18 [Rx] Allergies/Adverse Reactions: Allergy/AdvReac Type Severity Reaction Status Date / Time Penicillins [PCN] Allergy Hives Verified 09/14/15 12:32 Certification: Further, I certify that my clinical findings support that this patient is homebound (i.e. absences from home require considerable and taxing effort and are for medical reasons or latter day services or infrequently or short duration when for other reasons) because: Homebound Reason: Patient requires assistance of a person or device to safely leave home Attestation: My signature below is to certify that this patient is under my care and that I, or nurse practitioner, or a physician's baking assistant working with me, has a [id number] encounter with this patient.
[2018-06-12] MEDS ORDERED: *HR* Warfarin 5 MG TABLET PO ONE (18:00)
== END 2018-06-12 14:00 | disposition home health service (06) | DRG 300 ==
LOC: EMEROOARM 17:28 → 2ANU 17:28
PROVIDERS: ADMIT Internal Medicine; ATTEND Internal Medicine